=== PATIENT | female | born 1960 | race Caucasian/White ===

== ENCOUNTER 2021-08-07 03:17 | Outpatient (CLI) | payer SELFPAY | END 2021-08-07 03:18 | disposition EMS.NT | LOC: EMS 03:17 | DX: I10 Essential (primary) hypertension (principal) ==

== ENCOUNTER 2021-08-07 06:25 | Emergency (ER) | payer MEDICAID ==
[2021-08-07 06:49] VITALS: BP 182/101
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
[2021-08-07] MEDS: diazePAM 5 MG TABLET PO STA (07:08)
[2021-08-07] MEDS: METOPROLOL SUCCINATE 50 MG TABLET PO STA (07:09)
== END 2021-08-07 07:45 | disposition home or self-care (01) ==
LOC: ED 06:25
DX: F43.9 Reaction to severe stress, unspecified (principal); F32.A Depression, unspecified; T50.996A Underdosing of other drugs, medicaments and biological substances, initial encounter; I10 Essential (primary) hypertension
CPT/HCPCS: 99283; 99284; A9270